=== PATIENT | female | born 1975 | race Caucasian/White ===

== ENCOUNTER 2020-07-18 12:50 | Emergency (ER) | payer OTHER, SELFPAY ==
[~2020-07-18] VITALS: Ht 160 cm; Wt 86.2 kg
--- NOTE | 2020-07-18 13:05 | NUR ---
TRIAGED IN TENT,
[2020-07-18 13:07] VITALS: BP_SYST 109
--- NOTE | 2020-07-18 13:10 | NUR ---
DR. ROLDAN EXAMINING PT
[2020-07-18 14:00] VITALS: BP_SYST 135
[2020-07-18] MEDS ORDERED: ACETAMINOPHEN 325 MG TABLET PO ONE (14:00)
[2020-07-18] MEDS ORDERED: IBUPROFEN 600 MG TABLET PO ONE (14:00)
--- NOTE | 2020-07-18 14:00 | NUR ---
Patient given written and verbal discharge instructions and verbalizes understanding. ER MD discussed with patient the results and treatment provided. Patient in stable condition. ID arm band removed. Rx of given. Patient educated on pain management and to follow up with PMD. Pain Scale 0/10. Opportunity for questions provided and answered. Medication side effect fact sheet provided.
== END 2020-07-18 19:57 | disposition home or self-care (01) ==
LOC: SED 12:50
DX: R50.9 Fever, unspecified (principal); R06.02 Shortness of breath; Z20.828 Contact with and (suspected) exposure to other viral communicable diseases
CPT/HCPCS: 99283; U0003; C9803

== ENCOUNTER 2020-07-22 00:40 | Inpatient (IN) | payer OTHER, SELFPAY ==
[~2020-07-22] VITALS: Ht 160 cm; Wt 86.2 kg
[2020-07-22 01:15] VITALS: BP_SYST 120
--- NOTE | 2020-07-22 01:55 | NUR ---
RADIOLOGY WITH PATIENT FOR CHEST XRAY.
[2020-07-22] MEDS ORDERED: DEXAMETHASONE SOD PHOSPHATE 4 MG/ML VIAL IVP ONE (02:15)
[2020-07-22] MEDS ORDERED: AZITHROMYCIN 500 MG in NS 250 ML IV ONE (02:15)
[2020-07-22] MEDS ORDERED: cefTRIAXone 1 GM IVPB PREMIX 50 ML IV ONE (02:15)
--- NOTE | 2020-07-22 02:16 | NUR ---
Patient to ER bed 7 to gown for evaluation. Side rails up. Report given to JANIYA ALDRIDGE.
--- NOTE | 2020-07-22 02:20 | NUR ---
Pt presents to ER c/o increased fatigue and SOB x 1 day. Pt reports fevers that have not improved. Pt states taking advil 600 mg at 6 pm. Pt oral temp 100.9. Pt able to speak full sentence, does not appear to be in respiratory distress. Pt current O2 sat is 92 percent on RA.
--- NOTE | 2020-07-22 02:30 | NUR ---
# 20 gauge angiocath placed to rac. Use of asceptic technique. Opsite placed over site. Blood return noted. Blood for lab drawn from site. Flushed with 10 cc of normal saline. No evidence of infiltration noted. Patient tolerated well.
--- NOTE | 2020-07-22 02:40 | NUR ---
RT at bedside, ABG reading being obtained.
--- NOTE | 2020-07-22 02:55 | NUR ---
Pt is placed on 4L of oxygen, currently stating at 96 percent.
[2020-07-22 02:56] LABS: HEMATOCRIT 37.9 % (36-48); HEMOGLOBIN 12.8 g/dL (12.0-16.0); MEAN CORPUSCULAR HEMOGLOBIN 31 pg (27-31); MEAN CORPUSCULAR HGB CONC 34 % (32-36); MEAN CORPUSCULAR VOLUME 92 fL (79.0-98.0); PLATELET COUNT (AUTO) 191 K/uL (130-430); RED BLOOD CELL COUNT(AUTO) 4.14 MIL/uL (4.2-6.2); RED CELL DISTRIBUTION WIDTH 13.1 % (9.0-15.0); WHITE BLOOD COUNT (AUTO) 3.2 K/uL (4.8-10.8)
[2020-07-22 03:06] LABS: CALCIUM 8.1 mg/dL (8.4-11.0); CREATININE 0.79 mg/dL (0.55-1.30); POTASSIUM 3.9 mmol/L (3.5-5.1)
[2020-07-22 03:08] LABS: C-REACTIVE PROTEIN QUANT 5.7 mg/dL (0-0.5)
--- NOTE | 2020-07-22 03:10 | NUR ---
ER at bedside examining patient.
[2020-07-22 03:12] LABS: INR 0.9 (0.8-1.2); PROTHROMBIN TIME 9.6 SECS (9.5-12.5)
[2020-07-22 03:13] LABS: ATYPICAL LYMPHOCYTES % 0 % (0-0); BAND % (MANUAL) 0 % (0-6); BASOPHILS % (MANUAL) 0 % (0-2); EOSINOPHILS % (MANUAL) 0 % (0-7); LYMPHOCYTES % (MANUAL) 21 % (20-46); MONOCYTES % (MANUAL) 8 % (0-11)
[2020-07-22 03:20] LABS: BILIRUBIN,URINE NEGATIVE (NEGATIVE); BLOOD, URINE NEGATIVE (NEGATIVE); CLARITY/URINE CLEAR (CLEAR); COLOR,URINE YELLOW (YELLOW); GLUCOSE,URINE NEGATIVE (NEGATIVE); KETONES,URINE TRACE (NEGATIVE); LEUKOCYTE ESTERASE ,URINE NEGATIVE (NEGATIVE); NITRITE, URINE NEGATIVE (NEGATIVE); PROTEIN URINE NEGATIVE (NEGATIVE); UROBILINOGEN,URINE 0.2 (0.2-1.0)
[2020-07-22 03:23] LABS: ALBUMIN 3.2 g/dL (3.4-4.8); TOTAL BILIRUBIN 0.4 mg/dL (0.0-1.0)
[2020-07-22] MEDS ORDERED: AZITHROMYCIN 250 MG TABLET ONE (03:47)
[2020-07-22] MEDS ORDERED: AZITHROMYCIN 250 MG TABLET PO ONE (04:00)
[2020-07-22] MEDS ORDERED: ACETAMINOPHEN 500 MG TABLET PO ONE (04:00)
[2020-07-22] MEDS ORDERED: LORazepam 2 MG/ML VIAL ONE (04:06)
--- NOTE | 2020-07-22 07:18 | NUR ---
Report given to Francia DENSON for continuation of care.
--- NOTE | 2020-07-22 07:25 | NUR ---
Patient sitting up in [facility], A&4. Belongings inventory obtained. No home medications per patient.
--- NOTE | 2020-07-22 08:13 | NUR ---
PATIENT GIVEN HOSPITAL BREAKFAST ON SAFETY TRAY. PT AWAKE AND SITTING UP IN [facility].
[2020-07-22] MEDS ORDERED: ALBUTEROL SULFATE 0.083% 2.5 MG/3 ML VIAL.NEB INH PRN (08:30)
[2020-07-22] MEDS ORDERED: IPRATROPIUM BROM 0.5 MG/2.5 ML VIAL.NEB (ATROVENT) INH PRN (08:30)
--- NOTE | 2020-07-22 10:46 | NUR ---
Dr. Cadena at bedside examining patient.
--- NOTE | 2020-07-22 10:47 | NUR ---
Patient awake sitting up in [facility].
[2020-07-22] MEDS ORDERED: cefTRIAXone 1 GM VIAL ONE (11:54)
[2020-07-22] MEDS: cefTRIAXone 1 GM in D5W 50 ML IV SCH (11:59)
--- NOTE | 2020-07-22 11:59 | NUR ---
Dietary called for lunch tray.
[2020-07-22] MEDS: ENOXAPARIN SODIUM 40 MG/0.4 ML SYRINGE SUBCUT SCH (12:00)
[2020-07-22] MEDS ORDERED: AZITHROMYCIN 500 MG/VIAL (ZITHROMAX) IV ONE (12:48)
[2020-07-22] MEDS: AZITHROMYCIN 500 MG in NS 250 ML IV SCH (12:51)
[2020-07-22] MEDS ORDERED: IPRATROPIUM BROM 0.5 MG/2.5 ML VIAL.NEB (ATROVENT) INH SCH (13:00)
[2020-07-22] MEDS ORDERED: ALBUTEROL SULFATE 0.083% 2.5 MG/3 ML VIAL.NEB INH SCH (13:00)
--- NOTE | 2020-07-22 13:05 | NUR ---
REPORT TO COOKIE DENSON
--- NOTE | 2020-07-22 13:10 | NUR ---
CHASIDY TO ASSUME CARE. PT CALM, ALERT, RESP UNLABORED, SKIN WARM AND DRY
[2020-07-22] MEDS ORDERED: ALBUTEROL MDI INHALATION 8 GM INH INH PRN (13:27)
--- NOTE | 2020-07-22 13:56 | NUR ---
EASILY AROUSED, RESTING EASY. DENIES CP/SOB . NO DISTRESS. COMMUNICATES IN FULL COMPLETE SENTNECES
--- NOTE | 2020-07-22 15:26 | NUR ---
FFP CONVALESCENT INFUSION IN PROGRESS, TOLERATING WELL.
--- NOTE | 2020-07-22 15:50 | NUR ---
BEDSIDE RPEORT RECIEVED FROM REGIONAL SALES CONSULTANT COOKIE LANGE ASSUMED CARE
--- NOTE | 2020-07-22 15:50 | NUR ---
PT. IN BED RESTING RECEIVING CONVALESCENT PLASMA TOLERATING WELL WITH VITALS WNL PT. APPEARS TO HAVE NO DITRESS AND DNEIES CP OR SOB WILL CONITINUE TO MONITOR
--- NOTE | 2020-07-22 16:40 | NUR ---
BLOOD TRANSFUSAION COMPLETE PT. TOLERATED WELL
[2020-07-22 16:42] VITALS: BP_SYST 100
[2020-07-22 17:00] VITALS: BP_SYST 99
--- NOTE | 2020-07-22 17:17 | NUR ---
ADMIT NOTE late entry due to patient care 1650 Received pt from ER to the floor with a diagnosis of covid pneumonia. Admission process initiated. patient oriented to pain management, safety and call light-teach back done.
[2020-07-22] MEDS: ASCORBIC ACID 500 MG TABLET PO SCH (18:42)
[2020-07-22] MEDS: CHOLECALCIFEROL (VITAMIN D3) 2,000 UNIT TABLET PO SCH (18:43)
--- NOTE | 2020-07-22 19:00 | NUR ---
Note Received report from previous RN Alana for continuation of care. Pt's RAC IV intact and patent infusing IVPB antibiotics. Pt on O2 at 5L/nc. Pt sitting up in bed eating her dinner. No needs noted at this time. Call light within reach. Pt was maintained with safety and isolation precautions all shift.
--- NOTE | 2020-07-22 19:34 | NUR ---
Initial note: Received report from marissa RN. Patient is awake in bed watching TV. No acute distress. Tolerating 5L NC, even and unlabored breathing. Remdesivir infusing to IV site as ordered, no infiltration. Call light with patient. Safety, fall, COVID iso precautions in place. Will continue with plan of care.
[2020-07-22] MEDS: ALBUTEROL MDI INHALATION 8 GM INH INH SCH (19:55)
[2020-07-22 20:00] VITALS: BP_SYST 98
--- NOTE | 2020-07-23 01:25 | NUR ---
Sleeping: Patient is asleep in prone position, no acute distress, even and unlabored breathing on 5L NC. IV site saline locked. Call light with patient. Will continue to monitor.
[2020-07-23] MEDS: ALBUTEROL MDI INHALATION 8 GM INH INH SCH ×4 (01:45→19:26)
[2020-07-23] MEDS: DEXAMETHASONE SOD PHOSPHATE 4 MG/ML VIAL IVP SCH ×2 (02:30→08:54)
[2020-07-23 04:00] VITALS: BP_SYST 112
--- NOTE | 2020-07-23 05:30 | NUR ---
CONSULT REASON FOR CONSULT: COVID CONSULTING PHYSICIAN: DR. MACHUCA (DR. PELAEZ SAW THE PATIENT IN ER) DIRECTOR WEB PHONE NUMBER: [phone] ORDERING PHYSICIAN: DR. TAYLOR
--- NOTE | 2020-07-23 06:36 | NUR ---
Closing note: Patient is awake in bed. No acute distress. Tolerating O2 5LPM via NC, even and unlabored breathing. Instructed patient on correct incentive spirometer use, she verbalized understanding. She is unable to take a deep breath using IS without coughing. IV site benign and intact. All needs met. Call light with patient. Safety, fall, COVID iso precautions in place. Will endorse care to dayshift RN.
[2020-07-23 07:50] LABS: BILIRUBIN,DIRECT 0.1 mg/dL (0.0-0.3); CREATININE 0.58 mg/dL (0.55-1.30); POTASSIUM 3.9 mmol/L (3.5-5.1); TOTAL BILIRUBIN 0.3 mg/dL (0.0-1.0)
[2020-07-23 08:00] VITALS: BP_SYST 115
--- NOTE | 2020-07-23 08:00 | NUR ---
Note Pt sitting up in bed to eat her breakfast at this time. No SOB/resp distress or pain/discomfort noted at this time. Pt has tele unit attached and intact at this time. Pt on O2 at 5L/nc. IV in RAC intact and patent. Call light within reach.
[2020-07-23] MEDS: ASCORBIC ACID 500 MG TABLET PO SCH (08:49)
[2020-07-23] MEDS: CHOLECALCIFEROL (VITAMIN D3) 2,000 UNIT TABLET PO SCH (08:49)
[2020-07-23] MEDS: cefTRIAXone 1 GM in D5W 50 ML IV SCH (08:54)
[2020-07-23] MEDS: ENOXAPARIN SODIUM 40 MG/0.4 ML SYRINGE SUBCUT SCH (08:54)
[2020-07-23 09:18] LABS: C-REACTIVE PROTEIN QUANT 3.4 mg/dL (0-0.5)
[2020-07-23] MEDS: AZITHROMYCIN 500 MG in NS 250 ML IV SCH (10:09)
[2020-07-23 12:00] VITALS: BP_SYST 112
--- NOTE | 2020-07-23 12:00 | NUR ---
Note Dr Kimble and Dr Saravia on the floor to assess pt and check labs/tests at this time. Questions/concerns were answered at this time. Pt has been using the BSC all shift to void. No needs noted at this time. Call light within reach.
[2020-07-23 16:32] VITALS: BP_SYST 98
--- NOTE | 2020-07-23 18:30 | NUR ---
Note Pt sitting up in bed eating her dinner. Pt has O2 on at 5L/nc and tele unit attached and intact at this time. Pt denies any SOB/resp distress or pain/discomfort at this time. IV in RAC intact and patent. Pt has been ambulating from bed to BSC with steady gait and no resp distress. Pt has been checked on q1' and PRN all shift for needs and care. Pt was maintained with safety and isolation precautions all shift. No needs noted at this time. Call light within reach.
--- NOTE | 2020-07-23 19:30 | NUR ---
ROUNDS PATIENT RESTING COMFORTABLY IN BED, OT IN DISTRESS, VITALS STABLE. DENIES AY PAIN AND DISCOMFORT AT THIS TIME. ASSESSMENT DONE AND DOCUMENTED. SEE FLOWSHEET. NEEDS ATTENDED TO. CALL LIGHT PLACED WITHIN REACH.
[2020-07-23 20:00] VITALS: BP_SYST 97
--- NOTE | 2020-07-23 21:25 | NUR ---
ROUNDS PATIENT WATCHING TV, NO COMPLAINTS AT THIS TIME, WILL CONTINUE TO MONITOR.
[2020-07-24] VITALS: BP_SYST 101
--- NOTE | 2020-07-24 00:12 | NUR ---
PATIENT RESTING: Patient resting quietly. No acute distress noted. Vital signs within normal range.
[2020-07-24] MEDS: ALBUTEROL MDI INHALATION 8 GM INH INH SCH ×3 (01:24→20:30)
--- NOTE | 2020-07-24 02:14 | NUR ---
ROUNDS PATIENT ASLEEP, NO SOB NOTED, RESPIRATIONS EVEN AND UNLABORED. WILL CONTINUE TO MONITOR.
--- NOTE | 2020-07-24 02:14 | NUR ---
ROUNDS PATIENT ASLEEP, RESPIRATIONS EVEN AND UNLABORED, NO SOB NOTED. WILL CONTINUE TO MONITOR.
--- NOTE | 2020-07-24 04:13 | NUR ---
PATIENT RESTING: Patient resting quietly. No acute distress noted. Vital signs within normal range.
--- NOTE | 2020-07-24 06:50 | NUR ---
CLOSING NOTES PATIENT AWAKE, NO COMPLAINTS AT THIS TIME, VITALS STABLE. ALL NEEDS ATTENDED TO. SAFETY MEASURES MAINTAINED. CALL LIGHT PLACED WITHIN REACH.
--- NOTE | 2020-07-24 07:20 | NUR ---
OPENING NOTE RECEIVED SBAR FROM NIGHT RN, PATIENT IN BED, RESPIRATIONS EVEN, NON LABORED, BED IN LOW AND LOCKED POSITION, CALL LIGHT WITHIN REACH
[2020-07-24 08:00] VITALS: BP_SYST 100
--- NOTE | 2020-07-24 08:00 | NUR ---
NURSE NOTE OBTAINED VS. PATIENT IN BED, RESPIRATIONS EVEN, 4L O2 NASAL CANULA, IVF'S RUNNING ORDERED, BED IN LOW AND LOCKED POSITION CALL LIGHT WITHIN REACH, BED ALARM ON. PATIENT DENIES ANY PAIN OR DISCOMFORT. EDUCATED PATIENT ON PROPER USE OF INCENTIVE SPIROMETER AND PRONING. PATIENT VERBALIZED UNDERSTANDING AND WAS ABLE TO SHOW PROPER TECHNIQUE.
[2020-07-24 08:09] LABS: BASOPHILS % (AUTO) 0.3 % (0.0-2.0); HEMATOCRIT 36.7 % (36-48); HEMOGLOBIN 12.4 g/dL (12.0-16.0); LYMPHOCYTES # (AUTO) 1.3 K/uL (1.0-5.5); MEAN CORPUSCULAR HEMOGLOBIN 31 pg (27-31); MEAN CORPUSCULAR HGB CONC 34 % (32-36); MEAN CORPUSCULAR VOLUME 92 fL (79.0-98.0); MONOCYTES # (AUTO) 0.4 K/uL (0.0-1.0); MONOCYTES % (AUTO) 9.9 % (1.7-9.3); NEUTROPHILS # (AUTO) 2.4 K/uL (1.8-7.7); NEUTROPHILS % (AUTO) 58.8 % (40.0-70.0); PLATELET COUNT (AUTO) 278 K/uL (130-430); RED BLOOD CELL COUNT(AUTO) 3.99 MIL/uL (4.2-6.2); WHITE BLOOD COUNT (AUTO) 4.1 K/uL (4.8-10.8)
[2020-07-24] MEDS: cefTRIAXone 1 GM in D5W 50 ML IV SCH (09:25)
[2020-07-24] MEDS: ENOXAPARIN SODIUM 40 MG/0.4 ML SYRINGE SUBCUT SCH (09:26)
[2020-07-24] MEDS: CHOLECALCIFEROL (VITAMIN D3) 2,000 UNIT TABLET PO SCH (09:26)
[2020-07-24] MEDS: ASCORBIC ACID 500 MG TABLET PO SCH (09:26)
[2020-07-24] MEDS: DEXAMETHASONE SOD PHOSPHATE 4 MG/ML VIAL IVP SCH (09:26)
[2020-07-24 09:28] LABS: ALBUMIN 3.2 g/dL (3.4-4.8); BILIRUBIN,DIRECT 0.2 mg/dL (0.0-0.3); CREATININE 0.71 mg/dL (0.55-1.30); POTASSIUM 4.4 mmol/L (3.5-5.1); TOTAL BILIRUBIN 0.2 mg/dL (0.0-1.0)
--- NOTE | 2020-07-24 10:00 | NUR ---
NURSE NOTE PATIENT IN BED, PRONE, DENIES ANY PAIN OR DISCOMFORT. BED IN LOW AND LOCKED POSITION CALL LIGHT WITHIN REACH
[2020-07-24] MEDS: AZITHROMYCIN 500 MG in NS 250 ML IV SCH (11:07)
[2020-07-24 12:00] VITALS: BP_SYST 98
--- NOTE | 2020-07-24 12:00 | NUR ---
NURSE NOTE OBTAINED VS, PROVIDED PATIENT WITH LUNCH, BED IN LOW AND LOCKED POSITION CALL LIGHT WITHIN REACH, DENIES ANY PAIN OR DISCOMFORT
[2020-07-24 13:02] LABS: C-REACTIVE PROTEIN QUANT 1.6 mg/dL (0-0.5)
--- NOTE | 2020-07-24 14:00 | NUR ---
NURSE NOTE PATIENT IN BED, USING INCENTIVE SPIROMETER, DENIES ANY PAIN OR DISCOMFORT, BED IN LOW AND LOCKED POSITION CALL LIGHT WITHIN REACH
--- NOTE | 2020-07-24 16:00 | NUR ---
NURSE NOTE PATIENT IN BED, PRONE, BED IN LOW AND LOCKED POSITION CALL LIGHT WITHIN REACH, DENIES ANY PAIN OR DISCOMFORT.
--- NOTE | 2020-07-24 18:43 | NUR ---
NURSE NOTE PATIENT IN BED, REMOVED TRAY FOR DINNER, LAYING ON SIDE. BED IN LOW AND LOCKED POSITION, CALL LIGHT WITHIN REACH
--- NOTE | 2020-07-24 19:58 | NUR ---
nurse note patient in bed. obtained VS. O2 nasal cannula 3L, 96%. lowered O2 to 2L, educated patient if she starts to feel dizzy, short of breath to use call light to inform me and we would increase O2. Patient verbalized understanding and had no questions. Bed in low and locked position, call light within reach
[2020-07-24 20:00] VITALS: BP_SYST 108
--- NOTE | 2020-07-24 21:25 | NUR ---
nurse note patient in bed, respirations even, non labored, bed in low and locked position, call light within reach. 2L O2 nasal canula, IVF's running as ordered. Patient denies any pain or discomfort
--- NOTE | 2020-07-24 22:19 | NUR ---
nurse note saline locked IV, disconnected from IV. Patient complaining of headache, no medication available Paged Dr. Marshall for orders
--- NOTE | 2020-07-24 22:40 | NUR ---
ORDERS INFORMED DR MEDINA THAT PATIENT HAS A HEADACHE NEW ORDERS RECEIVED
--- NOTE | 2020-07-24 22:43 | NUR ---
CATALINO FOR DR. MORILLO FOR ORDERS. I SPOKE WITH
[2020-07-24] MEDS ORDERED: ACETAMINOPHEN 325 MG TABLET PO PRN (23:00)
--- NOTE | 2020-07-25 01:30 | NUR ---
closing note Provided SBAR to RN, patient in bed, respirations even, non labored, 2L O2 nasal canula, iv saline locked, bed in low and locked position call light within reach, endorsed care to night RN
--- NOTE | 2020-07-25 02:15 | NUR ---
ROUNDS Pt AAOx4, resting quietly in bed with no c/o shortness of breath, no further c/o pain or discomfort. Pt on Airborne and droplet precautions for Covid 19+. Needs met, call light within reach.
[2020-07-25 04:05] VITALS: BP_SYST 112
--- NOTE | 2020-07-25 06:22 | NUR ---
CLOSING NOTE Pt resting quietly in bed with no s/s resp distress, no c/o pain or discomfort. Airborne and droplet isolation precautions maintained throughout shift. Needs met, call light within reach.
[2020-07-25] MEDS: ALBUTEROL MDI INHALATION 8 GM INH INH SCH ×3 (07:00→12:00)
[2020-07-25] MEDS: cefTRIAXone 1 GM in D5W 50 ML IV SCH (08:09)
[2020-07-25] MEDS: CHOLECALCIFEROL (VITAMIN D3) 5,000 UNIT TABLET PO SCH (08:10)
[2020-07-25] MEDS: ASCORBIC ACID 500 MG TABLET PO SCH (08:10)
[2020-07-25] MEDS: DEXAMETHASONE SOD PHOSPHATE 4 MG/ML VIAL IVP SCH (08:10)
--- NOTE | 2020-07-25 08:10 | NUR ---
Respiratory Patient breathing is better as verbalized oxygen saturation 95 to 96% with 2 liter of oxygen with occasional cough, discussed all medication indication/side effect , ambulates with steady gait no SOB , needs attended.
[2020-07-25] MEDS: ENOXAPARIN SODIUM 40 MG/0.4 ML SYRINGE SUBCUT SCH (08:11)
[2020-07-25 08:23] VITALS: BP_SYST 103
[2020-07-25 08:26] LABS: CALCIUM 8.2 mg/dL (8.4-11.0); CREATININE 0.69 mg/dL (0.55-1.30); POTASSIUM 4.4 mmol/L (3.5-5.1); TOTAL BILIRUBIN 0.5 mg/dL (0.0-1.0)
[2020-07-25] MEDS: AZITHROMYCIN 500 MG in NS 250 ML IV SCH (09:46)
--- NOTE | 2020-07-25 09:56 | NUR ---
Nutrition Update Fernandez Scale 17 noted. Pt admitted for COVID 19, pneumonia. Diet: regular BMI: 33.7 kg/m2 RD to follow per nutrition care standards.
--- NOTE | 2020-07-25 10:51 | NUR ---
Discharge Planning: DANA faxed pt referral to [facility] (f [phone] p [phone]) att: DANA Boothe also faxed pt referral to [facility] (f [phone] p [phone]) att: Angy. Addendum: 07/25/20 at 1402 by Julia ACOSTA DANA spoke to Donna at [facility] (f [phone] p [phone]) she confirmed [facility] (f [phone] p [phone]) was on the contracted list. Addendum: 07/25/20 at 1717 by Julia Pizano DP DANA [email or web address] up with Angy at [facility] (f [phone] p [phone]) a certificate of medical necessity fo oxygen was given to patients nurse for doctor to filled out and faxed to [facility].
--- NOTE | 2020-07-25 11:00 | NUR ---
JANIYA NEGRO ASKED ME TO DOWNGRADE STATUS TO MED SURGE
[2020-07-25 11:45] VITALS: BP_SYST 110
--- NOTE | 2020-07-25 11:45 | NUR ---
Patient resting no sign of acute respiratory distress oxygen saturation 95% with 2 liters , possible discharge today when home oxygen is available , patient is aware as jamb cutter spoke to her.
[2020-07-25 15:52] VITALS: BP_SYST 107
--- NOTE | 2020-07-25 19:10 | NUR ---
OPENING NOTE REPORT RECEIVED FROM DAYSHIFT NURSE. PATIENT RECEIVED LYING IN BED, ASLEEP, NO S/S OF ACUTE DISTRESS. BREATHING EVEN AND UNLABORED. NASAL CANULA ATTACHED PROPERLY, ON 2L OF OXYGEN. IV SITE IS PATENT, NO SIGNS OF INFILTRATION OR INFECTION NOTED. PATIENT DENIES PAIN OR SOB. CALL LIGHT WITH PATIENT, DEMONSTRATED PROPER USE. INSTRUCTED TO CALL FOR ASSISTANCE WHEN NEEDED, PATIENT VERBALIZED UNDERSTANDING. BED IS LOCKED AND AT LOWEST POSITION. WILL CONTINUE TO MONITOR.
[2020-07-25 20:00] VITALS: BP_SYST 110
--- NOTE | 2020-07-25 21:00 | NUR ---
ROUNDS PATIENT IN BED, SLEEPING. NO SIGNS OF DISCOMFORT. CHEST RISE AND FALL EVEN BILATERALLY. CALL LIGHT WITH PATIENT. WILL CONTINUE TO MONITOR.
--- NOTE | 2020-07-25 23:00 | NUR ---
SWITCHED ROOM PATIENT MOVED TO ROOM 124A, PREVIOUS ROOM TURNED TO ICU ROOM. ALL PERSONAL BELONGINGS MOVED, ALL NEEDS MET. CALL LIGHT WITH PATIENT. WILL CONTINUE TO MONITOR.
[2020-07-26] VITALS: BP_SYST 106
[2020-07-26] MEDS: ALBUTEROL MDI INHALATION 8 GM INH INH SCH ×5 (00:42→18:05)
--- NOTE | 2020-07-26 01:00 | NUR ---
ROUNDS PATIENT ASLEEP. NO CHANGE IN CONDITION. ALL NEEDS MET. CALL LIGHT WITH PATIENT. WILL CONTINUE TO MONITOR.
--- NOTE | 2020-07-26 06:51 | NUR ---
CLOSING NOTE PATIENT IN BED, ASLEEP, NO S/S OF ACUTE DISTRESS NOTED. BREATHING EVEN AND UNLABORED. HOB RAISED, NASAL CANULA ATTACHED PROPERLY, ON 2L OF OXYGEN. IV SITE PATENT, NO SIGNS OF INFILTRATION OR INFECTION NOTED. ALL NEEDS MET THROUGHOUT SHIFT. FALL, SAFETY, AND PRECAUTIONS MAINTAINED THROUGHOUT SHIFT. WILL CONTINUE TO MONITOR UNTIL PATIENT CARE IS ENDORSED TO ONCOMING DAYSHIFT NURSE.
[2020-07-26 08:32] VITALS: BP_SYST 100
--- NOTE | 2020-07-26 08:32 | NUR ---
INITIAL ROUNDS Received pt AAOx4, no s/s resp distress, no c/o pain or discomfort. Pt hoping to go home today. Pt on Airborne and droplet isolation precautions for Covid 19+. Plan of care for the day reviewed with pt-pt verbalized her understanding. Pain management, disease process, the importance of self-proning, skin and safety discussed-teach back done. Call light within reach.
[2020-07-26 08:46] LABS: CALCIUM 8.3 mg/dL (8.4-11.0); CREATININE 0.78 mg/dL (0.55-1.30); POTASSIUM 4.2 mmol/L (3.5-5.1); TOTAL BILIRUBIN 0.4 mg/dL (0.0-1.0)
[2020-07-26] MEDS: ENOXAPARIN SODIUM 40 MG/0.4 ML SYRINGE SUBCUT SCH (09:25)
[2020-07-26] MEDS: cefTRIAXone 1 GM in D5W 50 ML IV SCH (09:36)
[2020-07-26] MEDS: CHOLECALCIFEROL (VITAMIN D3) 5,000 UNIT TABLET PO SCH (09:37)
[2020-07-26] MEDS: DEXAMETHASONE SOD PHOSPHATE 4 MG/ML VIAL IVP SCH (09:37)
[2020-07-26] MEDS: ASCORBIC ACID 500 MG TABLET PO SCH (09:37)
[2020-07-26] MEDS: AZITHROMYCIN 500 MG in NS 250 ML IV SCH (11:10)
--- NOTE | 2020-07-26 15:21 | NUR ---
ROUNDS Pt resting quietly in bed with no s/s resp distress, no c/o pain or discomfort. Just spoke with cathead worker/[employer] who faxed the signed O2 form DME. All precautions remain in place. Call light within reach.
[2020-07-26 16:45] VITALS: BP_SYST 105
--- NOTE | 2020-07-26 16:46 | NUR ---
SS notes UTILITY TENDER CARDING received the Rx Certificate of Medical Necessity form that was filled out by Dr. SPARKS faxed form over to [facility] at [phone]. CLARE left a message stating as such at [phone].
--- NOTE | 2020-07-26 19:13 | NUR ---
CLOSING NOTE Pt resting quietly in bed with no c/o shortness of breath, no c/o pain or discomfort. Airborne and droplet isolation precautions maintained throughout shift. Needs met, call light within reach.
--- NOTE | 2020-07-26 19:30 | NUR ---
OPENING NOTES: Patient is laying in bed with no s/s of distress or discomfort. She is alert and oriented x4 and does not have any concerns at this time. Patient has IV 20 g on RAC, with dry and intact dressing. She is on 4L O2 via NC, tolerating well. Ensured all safety precautions. Bed is locked and in the lowest position, call light within reach.
[2020-07-26 20:00] VITALS: BP_SYST 103
--- NOTE | 2020-07-26 22:15 | NUR ---
RN ROUNDS: Patient is laying in bed with no s/s of distress or discomfort. She does not have any concerns at this time. Will continue to monitor.
[2020-07-27] VITALS: BP_SYST 108
--- NOTE | 2020-07-27 | NUR ---
RN ROUNDS: Patient is laying in bed, alert and oriented. She does not have any concerns at this time. Vitals are within normal limits. Will continue to monitor.
--- NOTE | 2020-07-27 04:00 | NUR ---
RN ROUNDS: Patient is laying in bed with no s/s of distress or discomfort. She is currently asleep. Will continue to monitor.
[2020-07-27] MEDS: ALBUTEROL MDI INHALATION 8 GM INH INH SCH ×2 (06:00)
--- NOTE | 2020-07-27 07:50 | NUR ---
CLOSING NOTES: Patient is laying in bed with no s/s of distress or discomfort. All needs were met throughout shift. Will endorse to dayshift nurse.
[2020-07-27 07:55] VITALS: BP_SYST 102
--- NOTE | 2020-07-27 07:55 | NUR ---
INITIAL ROUNDS Received pt AAOx4, no s/s resp distress, no c/o pain or discomfort. Pt hoping to go home today-pt stated the oxygen was delivered to her home last night. Pt on Airborne and droplet isolation precautions for Covid 19+. Plan of care for the day reviewed with pt-pt verbalized her understanding. Pain management, disease process, the importance of self-proning and use of the Incentive Spirometer, skin and safety discussed-teach back done. Call light within reach.
[2020-07-27] MEDS: cefTRIAXone 1 GM in D5W 50 ML IV SCH (08:54)
[2020-07-27] MEDS: ASCORBIC ACID 500 MG TABLET PO SCH (08:55)
[2020-07-27] MEDS: CHOLECALCIFEROL (VITAMIN D3) 5,000 UNIT TABLET PO SCH (08:56)
[2020-07-27] MEDS: DEXAMETHASONE SOD PHOSPHATE 4 MG/ML VIAL IVP SCH (08:57)
[2020-07-27] MEDS: ENOXAPARIN SODIUM 40 MG/0.4 ML SYRINGE SUBCUT SCH (09:36)
[2020-07-27 11:01] VITALS: BP_SYST 100
[2020-07-27] MEDS ORDERED: DEC4 PO (13:13)
[2020-07-27] MEDS ORDERED: APIX2.5T PO (13:13)
--- NOTE | 2020-07-27 13:39 | NUR ---
CM Note: Pt is in Covid room: CM received dc order to home with home O2. Confirmed with Monae, RN said the pt already had home O2 delivered at pt's home and portable at bedside. The pt will be dc today.
--- NOTE | 2020-07-27 13:50 | NUR ---
PATIENT DISCHARGED HOME Patient given medication reconciliation form and D/C instructions. Exit Care explained and provided to patient. Patient verbalized her understanding. MD discussed with patient the results and treatment provided. Ambulatory with steady gait for discharge to home. Patient in stable condition, ID band removed. IV catheter removed, intact and dressing applied, no active bleeding. Rx of decadron tablets & Eliquis explained and given. Patient educated on pain management. All belongings sent with patient. Patient left floor via wheelchair to private vehicle in no distress.
== END 2020-07-27 13:50 | disposition home or self-care (01) | DRG 177 ==
LOC: SED 00:40 → STU 04:48 → SMU 07-25 10:57
PROVIDERS: ADMIT Internal Medicine Hospice and Palliative Medicine; ATTEND Internal Medicine Hospice and Palliative Medicine
PROC: XW033E5 Introduction of Remdesivir Anti-infective into Peripheral Vein, Percutaneous Approach, New Technology Group 5 (ICD-10-PCS; principal; 2020-07-22)
PROC: XW13325 Transfusion of Convalescent Plasma (Nonautologous) into Peripheral Vein, Percutaneous Approach, New Technology Group 5 (ICD-10-PCS; 2020-07-22)
DX: U07.1 COVID-19 (principal); J12.89 Other viral pneumonia; J96.01 Acute respiratory failure with hypoxia; E66.9 Obesity, unspecified; Z68.33 Body mass index [BMI] 33.0-33.9, adult
CPT/HCPCS: 36415; 36430; 36600; 71045; 80048; 80053; 80076; 81003; 82550-TC; 82728; 82803-TC; 83605; 83615-TC; 83880; 84484; 84702-TC; 85007; 85025; 85027; 85379; 85384-TC; 85610-TC; 85730-TC; 86140; 86886; 86900; 86901; 87040-TC; 87086; 93005; 94640; 94664; 94760; 96365; 96375; 99291; G0378; J0456; J0696; J1100; J1650; J2060; J7050; J7060; P9017; Q0144